=== PATIENT | female | born 1980 | race Caucasian/White ===

== ENCOUNTER 2017-01-05 04:32 | Emergency (ER) | payer OTHER ==
[2017-01-05 04:58] VITALS: BP 121/77; PULSE 84; TEMP 98; BMI 29.6
--- NOTE | 2017-01-05 05:18 | PDOC ---
History of Present Illness - General Chief Complaint: Psychiatric Stated Complaint: ANXIETY Time Seen by Provider: 01/05/17 04:49 - History of Present Illness Initial Comments: 01/05/17 05:41 36 yo F with h/o PTSD, anxiety, and Cisneros Parkinson White Syndrome who presents with chest tightness and SOB. Pt. reports onset of chest tightness and SOB this evening. Symptoms slightly improved. Denies N/V, fevers/chills, diaphoresis, jaw pain, neck pain , sensory changes, weakness, lightheadedness, palpitations, tremors, abdominal pain, or urinary complaints. States that she takes Topirmate 100 mg PO QD with last dose two days ago. H/o Cisneros Parkinson White s/p ablation. Endorses frequent panic attacks with recent social and emotional stressors of eviction from parent housing, and spousal sickness. Past History - Past Medical History Allergies/Adverse Reactions: Allergies Allergy/AdvReac Type Severity Reaction Status Date / Time Penicillins Allergy Verified 01/05/17 04:55 Home Medications: Ambulatory Orders Topiramate [Topamax] 100 mg PO DAILY 01/05/17 Cardiac Disorders: Yes (WPW) COPD: No Psychiatric Problems: Yes (PTSD, anxiety) - Surgical History Cardiac Surgery: Yes (ablation) - Suicide/Smoking/Psychosocial Hx Smoking History: Former smoker Have you smoked in the past 12 months: No Information on smoking cessation initiated: No Review of Systems - Review of Systems Comments:: 01/05/17 05:45 GENERAL/CONSTITUTIONAL: No fever or chills. No weakness. HEAD, EYES, EARS, NOSE AND THROAT: No change in vision. No ear pain or discharge. No sore throat.- CARDIOVASCULAR: No chest pain or shortness of breath RESPIRATORY: No cough, wheezing, or hemoptysis. GASTROINTESTINAL: No nausea, vomiting, diarrhea or constipation. GENITOURINARY: No dysuria, frequency, or change in urination. MUSCULOSKELETAL: No joint or muscle swelling or pain. No neck or back pain. SKIN: No rash NEUROLOGIC: No headache, vertigo, loss of consciousness, or change in strength/ sensation. ENDOCRINE: No increased thirst. No abnormal weight change HEMATOLOGIC/LYMPHATIC: No anemia, easy bleeding, or history of blood clots. ALLERGIC/IMMUNOLOGIC: No hives or skin allergy. *Physical Exam - Vital Signs Last Vital Signs Temp Pulse Resp BP Pulse Ox 98 F 84 18 121/77 98 01/05/17 04:54 01/05/17 04:54 01/05/17 04:54 01/05/17 04:54 01/05/17 04:54 - Physical Exam Comments: 01/05/17 05:45 GENERAL: Awake, alert, and fully oriented, in no acute distress HEAD: No signs of trauma, normocephalic, atraumatic EYES: PERRLA, EOMI, sclera anicteric, conjunctiva clear ENT: hearing grossly normal, nares patent, oropharynx clear without exudates. Moist mucosa NECK: Normal ROM,no JVD, or masses LUNGS: No distress, speaks full sentences, clear to auscultation bilaterally HEART: Regular rate and rhythm, normal S1 and S2, no murmurs, rubs or gallops, peripheral pulses normal and equal bilaterally. EXTREMITIES : Normal inspection, Normal range of motion, no edema. No clubbing or cyanosis. SKIN: Warm, Dry, normal turgor, no rashes or lesions noted. ED Treatment Course - LABORATORY CBC & Chemistry Diagram: 01/05/17 05:33 01/05/17 05:33 Medical Decision Making - Medical Decision Making 01/05/17 06:03 36 yo F with h/o PTSD, anxiety, potential cognitive delay, and Cisneros Parkinson White Syndrome s/p ablation who presents with chest tightness and SOB 30 minutes [employer]. Denies N/V/F/C, diaphoresis, jaw pain, neck pain , sensory changes , weakness, lightheadedness, palpitations, tremors, abdominal pain, or urinary complaints. Physical exam benign and hemodynamically stable. Endorses frequent panic attacks with recent social and emotional stressors of eviction from parent housing, and spousal sickness. Symptoms most likely 2/2 anxiety. R/o ACS/ DE. Reasonable to consider cardiac dysarrythmia in patient with h/o WPWS. ED course: CBC, CMP, Cardiac Labs, Trop, EKG, UA 01/05/17 06:32 UA: 2 + blood CBC: Unremarkable CMP: neg Patient stable for D/c with return precautions. *DC/Admit/Observation/Transfer Diagnosis at time of Disposition: Anxiety, Panic attack - Discharge Dispostion Disposition: HOME Condition at time of disposition: Stable Admit: No - Referrals - Patient Instructions Printed Discharge Instructions: Anxiety and Panic Attacks (Alternative Therapy) , DI for Anxiety -- Adult Additional Instructions: Please return to the emergency department with any new or worsening symptoms or concerns. Please follow up with your primary care provider within the next one week. - Post Discharge Activity - Attestations Physician Attestion: 01/05/17 06:15 I attest to the information provided in this note.
[2017-01-05 05:45] LABS: BASOPHIL 0.8 % (0-2.0); MCH 29.9 pg (25.7-33.7); MCHC 33.5 g/dl (32.0-36.0); MEAN CELL VOLUME 89.4 fl (80-96); MEAN PLT VOLUME 8.8 fl (7.5-11.1); NEUTROPHILS 68.4 % (42.8-82.8); PLATELET COUNT 220 K/MM3 (134-434); RDW 14.6 % (11.6-15.6); WHITE BLOOD COUNT 7.2 K/mm3 (4.0-10.0)
[2017-01-05 06:07] LABS: INR 1.12 (0.82-1.09); PROTHROMBIN TIME (PATIENT) 12.7 SEC (9.98-11.88)
[2017-01-05 06:08] LABS: URINE APPEARANCE SLCLOUDY; URINE BILIRUBIN NEGATIVE (NEGATIVE); URINE BLOOD 2+ (NEGATIVE); URINE COLOR YELLOW; URINE GLUCOSE (UA) NEGATIVE (NEGATIVE); URINE KETONE 1+ (NEGATIVE); URINE NITRITE NEGATIVE (NEGATIVE); URINE PROTEIN NEGATIVE (NEGATIVE); URINE UROBILINOGEN NEGATIVE mg/dL (0.2-1.0)
[2017-01-05 06:17] LABS: URINE BACTERIA RARE /hpf (NONE SEEN); URINE HYALINE CAST 1 /lpf; URINE MUCUS MODERATE
[2017-01-05 06:20] LABS: ALBUMIN 3.9 g/dl (3.4-5.0); ANION GAP 9 (8-16); BILIRUBIN,TOTAL 0.4 mg/dL (0.2-1.0); CALCIUM 8.8 mg/dL (8.5-10.1); CO2 24 mmol/L (21-32); CREATININE 0.9 mg/dL (0.55-1.02); GLUCOSE,RANDOM 99 mg/dL (74-106); SGOT/AST 9 U/L (15-37); SGPT/ALT 16 U/L (12-78); TOT PROT 6.7 g/dl (6.4-8.2)
[2017-01-05 06:21] LABS: ALK PHOS 67 U/L (45-117); CPK 87 IU/L (26-192); TROPONIN I < 0.02 ng/ml (0.00-0.05)
--- NOTE | 2017-01-05 13:56 | EKG ---
Test Reason : Blood Pressure : / mmHG Vent. Rate : 062 BPM Atrial Rate : 062 BPM P-R Int : 114 ms QRS Dur : 106 ms QT Int : 464 ms P-R-T Axes : 063 -11 088 degrees QTc Int : 470 ms SINUS RHYTHM WITH MARKED SINUS ARRHYTHMIA OTHERWISE NORMAL ECG NO PREVIOUS ECGS AVAILABLE Confirmed by JEFFERY SCHWARTZ, ANGELICA ([id number]) on 01/05/2017 1:56:36 PM Referred By: Confirmed By:ANGELICA GIL MD
[2017-01-05 14:15] LABS: URINE LEUK ESTERASE TRACE (NEGATIVE)
[2017-01-05 14:44] LABS: URINE RBC 14 /hpf (0-3); URINE WBC 15 /hpf (3-5)
== END 2017-01-05 06:55 | disposition home or self-care (01) ==
LOC: JER 04:32
DX: F41.0 Panic disorder [episodic paroxysmal anxiety] (principal); F43.10 Post-traumatic stress disorder, unspecified; Z86.79 Personal history of other diseases of the circulatory system
CPT/HCPCS: 36415; 71010-TC; 80053; 81003; 81015; 82550; 84484; 84703; 85025; 85610; 93005; 93010; 99282-25

== ENCOUNTER 2017-01-23 21:32 | Emergency (ER) | payer OTHER ==
--- NOTE | 2017-01-23 21:35 | PDOC ---
Rapid Medical Evaluation Time Seen by Provider: 01/23/17 21:33 Medical Evaluation: Allergies Allergy/AdvReac Type Severity Reaction Status Date / Time Penicillins Allergy Verified 01/05/17 04:55 01/23/17 21:34 I have performed a brief in-person evaluation of this patient. The patient presents with a chief complain of: b/l ankle pain s/p fall (Let ankle >right ankle pain) Pt fell @~2130HRS (x5 mins ago) Pertinent physical exam findings: B/L ankle F.R>O.M>, pt ambulating I have ordered the following:B/L ankle xray The patient will proceed to the ED for further evaluation.
[2017-01-23 21:37] VITALS: BP 138/65; PULSE 89; BMI 30.4
--- NOTE | 2017-01-23 22:20 | PDOC ---
History of Present Illness - General Chief Complaint: Injury Stated Complaint: ANKLE INJURY Time Seen by Provider: 01/23/17 21:33 History Source: Patient, Parent(s) (mother) Exam Limitations: No Limitations - History of Present Illness Initial Comments: 01/23/17 22:20 This is a 36-year-old woman with past medical history of PTSD, anxiety, depression who presents to the emergency department with left ankle pain status post inversion injury while walking on uneven pavement. Patient states that immediately prior to arrival she was walking on uneven pavement when she stepped down her left foot inverted her ankle and fell onto bilateral knees. Patient notes abrasion to right knee and pain to the left foot and ankle. Patient states her last tetanus shot was within the past few weeks due to another fall from walking on uneven pavement at that time. Past History - Past Medical History Allergies/Adverse Reactions: Allergies Allergy/AdvReac Type Severity Reaction Status Date / Time latex Allergy Verified 01/23/17 21:37 Penicillins Allergy Verified 01/05/17 04:55 Home Medications: Ambulatory Orders Topiramate [Topamax] 100 mg PO DAILY 01/05/17 Cardiac Disorders: Yes (WPW) COPD: No Psychiatric Problems: Yes (PTSD, anxiety) - Surgical History Cardiac Surgery: Yes (ablation) - Suicide/Smoking/Psychosocial Hx Smoking History: Never smoked Have you smoked in the past 12 months: No Information on smoking cessation initiated: No Review of Systems - Review of Systems Able to Perform ROS?: Yes Is the patient limited Trinidadian proficient: No Constitutional: No: Symptoms Reported HEENTM: No: Symptoms Reported Respiratory: No: Symptoms reported Cardiac (ROS): No: Symptoms Reported ABD/GI: No: Symptoms Reported : No: Symptoms Reported Musculoskeletal: Yes: See HPI Integumentary: Yes: See HPI Neurological: No: Symptoms reported *Physical Exam - Vital Signs Last Vital Signs Temp Pulse Resp BP Pulse Ox 89 18 138/65 99 01/23/17 21:35 01/23/17 21:35 01/23/17 21:35 01/23/17 21:35 - Physical Exam General Appearance: Yes: Appropriately Dressed. No: Apparent Distress HEENT: positive: Normal ENT Inspection Neck: positive: Trachea midline Respiratory/Chest: positive: Lungs Clear, Normal Breath Sounds. negative: Respiratory Distress, Accessory Muscle Use Cardiovascular: positive: Regular Rhythm, Regular Rate, S1, S2. negative: Murmur Gastrointestinal/Abdominal: positive: Normal Bowel Sounds, Soft. negative: Tender Musculoskeletal: positive: Normal Inspection Extremity: positive: Normal Capillary Refill, Other (abrasion noted to right anterior lateral knee.). negative: Swelling Integumentary: positive: Normal Color, Dry, Warm Neurologic: positive: financial reporting advisor II-XII NML intact, Fully Oriented, Alert, Normal Mood/ Affect, Normal Response, Motor Strength /5 Medical Decision Making - Medical Decision Making 01/23/17 22:25 A/P: This is a 36-year-old woman with past medical history of PTSD, anxiety, depression who presents to the emergency department with left ankle pain status post inversion injury while walking on uneven pavement. Patient states that immediately prior to arrival she was walking on uneven pavement when she stepped down her left foot inverted her ankle and fell onto bilateral knees. Patient notes abrasion to right knee and pain to the left foot and ankle. Patient states her last tetanus shot was within the past few weeks due to another fall from walking on uneven pavement at that time. Patient able to perform full range of motion against resistance without difficulty. No bony tenderness noted to navicular, base of the fifth metatarsal, over the malleolus. Patient able to her and foot upon arrival. Abrasion noted to right anterior lateral knee with minor swelling around the abrasion. No bony tenderness noted to the knee. Patient able to fully extend and flex knee without difficulty and against resistance. Differential diagnosis includes fracture of the ankle or foot versus soft tissue injury versus sprain I will obtain x-rays of the ankles and will defer pain medication at this time as patient is refusing. I will reevaluate after testing is completely and give patient medication if she requested at that time. 01/23/17 22:30 X-ray of bilateral ankles as read by me: No deformity of bony structures is noted. There is no soft tissue swelling. No malalignment of joints. I discussed the physical exam findings, ancillary test results and final diagnoses with the patient. I answered all of the patient's questions. The patient was satisfied with the care received and felt comfortable with the discharge plan and treatment plan. The patient will call her doctor within 96 hours to arrange follow-up and will return to the Emergency Department with any new, persistent or worsening symptoms. *DC/Admit/Observation/Transfer Diagnosis at time of Disposition: Ankle sprain Qualifiers: Encounter type: initial encounter Involved ligament of ankle: unspecified ligament Laterality: left Qualified Code(s): S93.402A - Sprain of unspecified ligament of left ankle, initial encounter - Discharge Dispostion Disposition: HOME Condition at time of disposition: Stable - Referrals Referrals: Bladimir Rivera MD [Staff Physician] - - Patient Instructions Printed Discharge Instructions: DI for Ankle Sprain Additional Instructions: Rest her leg as much as possible. Apply ice for 20 minutes. Then remove for a minimum of 20 minutes before reapplying ice for another 20 minutes. Take Tylenol or Motrin as needed for pain. Follow directions of manufacturers for appropriate dosage. Apply Mckay wrap to ankle to help provide some stability while walking. You've been given a referral from orthopedist. If symptoms do not improve within the next 2 weeks make an appointment with the orthopedist at the number provided. Return to emergency department for numbness and tingling of the foot or toes, inability to walk, severe pain, or any other concerns. Thank you very much for choosing us to provide your emergent healthcare needs. - Post Discharge Activity
== END 2017-01-23 22:40 | disposition home or self-care (01) ==
LOC: JERFT 21:32
DX: S93.402A Sprain of unspecified ligament of left ankle, initial encounter (principal); S80.211A Abrasion, right knee, initial encounter; W20.8XXA Other cause of strike by thrown, projected or falling object, initial encounter; Y93.01 Activity, walking, marching and hiking; Y92.480 Sidewalk as the place of occurrence of the external cause; Y99.8 Other external cause status; F41.8 Other specified anxiety disorders; F43.10 Post-traumatic stress disorder, unspecified; I45.6 Pre-excitation syndrome
CPT/HCPCS: 73610-TC-LT; 73610-TC-RT; 99281-25

== ENCOUNTER 2017-02-12 09:57 | Emergency (ER) | payer OTHER ==
[2017-02-12 10:07] VITALS: BP 110/74; PULSE 74; TEMP 98.5; BMI 27.3
[2017-02-12] MEDS ORDERED: KETOROLAC TROMETHAMINE 60 MG/2 ML VIAL IM ONE (10:37)
[2017-02-12] MEDS ORDERED: KETOROLAC TROMETHAMINE 60 MG/2 ML VIAL ONE (10:40)
--- NOTE | 2017-02-12 10:54 | PDOC ---
History of Present Illness - General Chief Complaint: Back Pain Stated Complaint: ABD PAIN Time Seen by Provider: 02/12/17 10:17 History Source: Patient Exam Limitations: No Limitations - History of Present Illness Initial Comments: 02/12/17 10:49 Patient is a [36-year-old female, history of PTSD, back pain, presents with reproducible generalized back pain for several months reports also falling forward after tripping on a curb a few weeks ago which made the pain worse, was seen in the emergency department workup was negative. No pain on inspiration, no chest pain or SOB, Has been taking Motrin 20 mg without resolve last taken yesterday. Denies any neurosensory deficits, no saddle anesthesia, no bowel or bladder difficulty, no footdrop. Patient also recently treated for urinary tract infection complaining of pain to lower abdomen, scar last evening. Denies any urinary symptoms. Was taking Bactrim for UTI. ] Past Medical History: [Denies]. Allergies: No known allergies Medications: [Topamax] Family History: Non-contributory Social History: Denies smoking, alcohol use, or IVDU Review of Systems GENERAL/CONSTITUTIONAL: [No fever or chills. No weakness. No weight change.] HEAD, EYES, EARS, NOSE AND THROAT: [No change in vision. No ear pain or discharge. No sore throat. ] CARDIOVASCULAR: [No chest pain or shortness of breath.] RESPIRATORY: [No cough, wheezing, or hemoptysis.] GASTROINTESTINAL: [No nausea, vomiting, diarrhea or constipation. No rectal bleeding.] GENITOURINARY: [No dysuria, frequency, or change in urination.] MUSCULOSKELETAL: [No joint or muscle swelling or pain. No neck pain. Generalized mid back pain. ] SKIN AND BREASTS: [No rash or easy bruising.] NEUROLOGIC: [No headache, vertigo, loss of consciousness, or loss of sensation.] ENDOCRINE: [No increased thirst. No abnormal weight change.] HEMATOLOGIC/LYMPHATIC: [No anemia, easy bleeding, or history of blood clots.] ALLERGIC/IMMUNOLOGIC: [No hives or skin allergy. No latex allergy.] Physical Exam: GENERAL: [The patient is awake, alert, and fully oriented, in no acute distress. ] HEAD: [Normal with no signs of trauma.] EYES: [Pupils equal, round and reactive to light, extraocular movements intact, sclera anicteric, conjunctiva clear.] ENT: [Ears normal, nares patent, oropharynx clear without exudates. Moist mucous membranes. No uvula deviation] NECK: [Normal range of motion, supple without lymphadenopathy, JVD, or masses.] LUNGS: [Breath sounds equal, clear to auscultation bilaterally. No wheezes, and no crackles.] HEART: [Regular rate and rhythm, normal S1 and S2 without murmur, rub or gallop. ] ABDOMEN: [Soft, suprapubic tenderness, normoactive bowel sounds. No guarding, no rebound. No masses. No bruising or abrasions] MUSCULOSKELETAL: [Normal range of motion, no edema. No clubbing or cyanosis. No cords, erythema, or tenderness. No CVA Tenderness with fist palpation, no spinal point tenderness.] NEUROLOGICAL: [Cranial nerves II through XII grossly intact. Normal speech, normal gait.] SKIN: [Warm, Dry, normal turgor, no rashes or lesions noted.] Past History - Past Medical History Allergies/Adverse Reactions: Allergies Allergy/AdvReac Type Severity Reaction Status Date / Time latex Allergy Verified 02/12/17 10:02 Penicillins Allergy Verified 02/12/17 10:02 Home Medications: Ambulatory Orders Topiramate [Topamax -] 100 mg PO DAILY 01/05/17 Ibuprofen [Motrin -] 600 mg PO QID #28 tablet 02/12/17 Nitrofurantoin Monohyd/M-Cryst [Macrobid -] 100 mg PO BID #14 capsule 02/12/17 Cardiac Disorders: Yes (WPW) COPD: No Psychiatric Problems: Yes (PTSD, anxiety) - Surgical History Cardiac Surgery: Yes (ablation) - Suicide/Smoking/Psychosocial Hx Smoking History: Current every day smoker Have you smoked in the past 12 months: Yes Number of Cigarettes Smoked Daily: 2 Information on smoking cessation initiated: No Hx Alcohol Use: Yes Drug/Substance Use Hx: No Substance Use Type: Alcohol, Tranquilizers *Physical Exam - Vital Signs Last Vital Signs Temp Pulse Resp BP Pulse Ox 98.5 F 74 20 110/74 99 02/12/17 10:02 02/12/17 10:02 02/12/17 10:02 02/12/17 10:02 02/12/17 10:02 ED Treatment Course - Medications Given in the ED: ED Medications Discontinued Medications Generic Name Dose Route Start Last Admin Trade Name Brook PRN Reason Stop Dose Admin Ketorolac Tromethamine 60 mg 02/12/17 10:37 02/12/17 10:48 Toradol Injection - IM 02/12/17 10:38 60 mg ONCE ONE Administration Medical Decision Making - Medical Decision Making 02/12/17 10:54 A/P: Patient here for evaluation of chronic back pain only took 200 mg of Motrin without resolved yesterday has not attempted to take any medication. Patient also complaining of suprapubic pain, pain to scar however was recently treated for urinary tract infection with Bactrim patient was not compliant with medication regimen. Will send urinalysis, urine culture, and give Toradol 60 mg IM for pain. 02/12/17 11:29 Laboratory Results - last 24 hr 02/12/17 10:50 Urine Color Straw Urine Appearance Clear Urine pH 6.0 Ur Specific [place] 1.005 Urine Protein Negative Urine Glucose (UA) Negative Urine Ketones Negative Urine Blood Negative Urine Nitrite Negative Urine Bilirubin Negative Urine Urobilinogen Negative Urine WBC (Auto) 10 Urine RBC (Auto) 5 Ur Epithelial Cells Rare Urine Bacteria Rare Urine Mucus Rare Urinary tract infection appears to be unresolved, patient was noncompliant with medication will give continued prescription for Bactrim since patient did not take it according to instructions. Patient reports pain is resolved after Toradol will DC patient home on Macrobid , follow-up with PMD I discussed the physical exam findings, ancillary test results and final diagnoses with the patient. I answered all of the patient's questions. The patient was satisfied with the care received and felt comfortable with the discharge plan and treatment plan. The patient will call to arrange follow-up and will return to the Emergency Department with any new, persistant or worsening symptoms. *DC/Admit/Observation/Transfer Diagnosis at time of Disposition: Chronic back pain Qualifiers: Back pain location: back pain in other location Qualified Code(s): M54.9 - Dorsalgia, unspecified Urinary tract infection Qualifiers: Urinary tract infection type: site unspecified Hematuria presence: without hematuria Qualified Code(s): N39.0 - Urinary tract infection, site not specified - Discharge Dispostion Disposition: HOME Condition at time of disposition: Good Admit: No - Prescriptions Prescriptions: Ibuprofen [Motrin -] 600 mg PO QID #28 tablet Nitrofurantoin Monohyd/M-Cryst [Macrobid -] 100 mg PO BID #14 capsule - Referrals Referrals: [facility] [Provider Group] - Patient Instructions Additional Instructions: Increase fluids Please follow-up with [facility] for further evaluation of this chronic pain and reevaluation of recurrent urinary tract infection Please be compliant with taking her medication as symptoms will not resolve if you do not take complete course of medication If any increased fever, respiratory difficulty, recurrent urinary pain, return to ER - Post Discharge Activity Forms/Work/School Notes: Back to Work
[2017-02-12 10:58] LABS: URINE APPEARANCE CLEAR; URINE BILIRUBIN NEGATIVE (NEGATIVE); URINE BLOOD NEGATIVE (NEGATIVE); URINE COLOR STRAW; URINE GLUCOSE (UA) NEGATIVE (NEGATIVE); URINE KETONE NEGATIVE (NEGATIVE); URINE NITRITE NEGATIVE (NEGATIVE); URINE PROTEIN NEGATIVE (NEGATIVE); URINE UROBILINOGEN NEGATIVE mg/dL (0.2-1.0)
[2017-02-12 11:03] LABS: URINE LEUK ESTERASE 3+ (NEGATIVE)
[2017-02-12 11:05] LABS: URINE BACTERIA RARE /hpf (NONE SEEN); URINE MUCUS RARE; URINE RBC 5 /hpf (0-3); URINE WBC 10 /hpf (3-5)
[2017-02-12 19:03] LABS: URINE LEUK ESTERASE 2+ (NEGATIVE)
== END 2017-02-12 12:27 | disposition home or self-care (01) ==
LOC: JERFT 09:57
PROC: 3E0233Z Introduction of Anti-inflammatory into Muscle, Percutaneous Approach (ICD-10-PCS; principal; 2017-02-12)
DX: N39.0 Urinary tract infection, site not specified (principal); M54.89 Other dorsalgia
CPT/HCPCS: 81003; 81015; 87086; 99281-25